=== PATIENT | female | born 1995 | race Caucasian/White ===

== ENCOUNTER 2017-05-29 18:14 | Emergency (ER) | payer MEDICARE ==
[~2017-05-29] VITALS: Ht 167.6 cm; Wt 99.8 kg
[2017-05-29 18:19] VITALS: BP_SYST 111
[2017-05-29 21:37] LABS: BILIRUBIN,URINE NEGATIVE (NEGATIVE); CLARITY/URINE CLEAR (CLEAR); COLOR,URINE YELLOW (YELLOW); GLUCOSE,URINE NEGATIVE (NEGATIVE); KETONES,URINE NEGATIVE (NEGATIVE); LEUKOCYTE ESTERASE ,URINE NEGATIVE (NEGATIVE); NITRITE, URINE NEGATIVE (NEGATIVE); PH,URINE 5.5 (5.0-8.0); PROTEIN URINE NEGATIVE (NEGATIVE); UROBILINOGEN,URINE 0.2 (0.2-1.0)
[2017-05-29 21:40] LABS: BLOOD, URINE TRACE (NEGATIVE)
[2017-05-29 21:57] LABS: RBC,URINE 0-3 /HPF (0-3)
[2017-05-29 21:58] LABS: BACTERIA,URINE MODERATE /HPF (None Seen)
[2017-05-29 21:59] LABS: MUCUS,URINE 3+ /LPF (None Seen)
[2017-05-29] MEDS ORDERED: NACL 0.9% 1,000 ML IV ONE (22:47)
[2017-05-29] MEDS ORDERED: ONDANSETRON HCL 4 MG/2 ML VIAL IVP ONE (23:00)
[2017-05-29] MEDS ORDERED: FAMOTIDINE PF 20 MG/2 ML VIAL IVP ONE (23:00)
[2017-05-29] MEDS ORDERED: MORPHINE 4 MG/ML INJ. SYRINGE IVP ONE (23:00)
[2017-05-29] MEDS ORDERED: KETOROLAC TROMETHAMINE 30 MG VIAL IVP ONE (23:00)
[2017-05-29] MEDS ORDERED: MORPHINE 2 MG/ML INJ. SYRINGE ONE (23:15)
[2017-05-29 23:37] LABS: BASOPHILS # (AUTO) 0.1 K/uL (0.0-0.2); BASOPHILS % (AUTO) 0.7 % (0.0-2.0); EOSINOPHILS # (AUTO) 0.3 K/uL (0.0-0.4); EOSINOPHILS % (AUTO) 2.5 % (0.0-4.0); HEMATOCRIT 43.2 % (36-48); HEMOGLOBIN 14.4 g/dL (12.0-16.0); LYMPHOCYTES # (AUTO) 1.8 K/uL (1.0-5.5); LYMPHOCYTES % (AUTO) 16.5 % (20.5-51.5); MEAN CORPUSCULAR HEMOGLOBIN 29 pg (27-31); MEAN CORPUSCULAR HGB CONC 33 % (32-36); MEAN CORPUSCULAR VOLUME 85 fL (79.0-98.0); MONOCYTES # (AUTO) 0.5 K/uL (0.0-1.0); MONOCYTES % (AUTO) 4.5 % (1.7-9.3); NEUTROPHILS # (AUTO) 8.3 K/uL (1.8-7.7); NEUTROPHILS % (AUTO) 75.8 % (40.0-70.0); PLATELET COUNT (AUTO) 357 K/uL (130-430); RED BLOOD CELL COUNT(AUTO) 5.05 MIL/uL (4.2-6.2); RED CELL DISTRIBUTION WIDTH 12.6 % (9.0-15.0)
[2017-05-29 23:46] LABS: CALCIUM 8.5 mg/dL (8.4-11.0); CREATININE 0.77 mg/dL (0.55-1.30); POTASSIUM 4.1 mmol/L (3.5-5.1)
[2017-05-29 23:50] LABS: ALBUMIN 3.8 g/dL (3.4-4.8)
[2017-05-30 01:05] VITALS: BP_SYST 130
== END 2017-05-30 01:05 | disposition home or self-care (01) ==
LOC: SED 18:14
DX: R11.2 Nausea with vomiting, unspecified (principal); R50.9 Fever, unspecified
CPT/HCPCS: 36415; 80053; 81000; 83690; 84703; 85025; 86710; 87086; 96361; 96374; 96375; 99284; J1885; J2270; J2405; J3490; J7030